=== PATIENT | male | born 1995 | race Caucasian/White ===

== ENCOUNTER 2016-11-05 17:36 | Inpatient (IN) | payer OTHER ==
--- NOTE | ~2016-11-05 | HP ---
Unit #: [id number] #: [id number] Patient: RALPH FRIAS [id number] [facility] [address] [place] [address] [id number] I MR#: [id number] NAME: RALPH FRIAS. ROOM: 14 Age: 21 Sex: M Admission Date: 11/05/2016 : 1995 Attending Physician: Joe Vogel M.D. Admitting Physician: Joe Vogel M.D. Primary Care Physician: Primary Care Physician No HISTORY AND PHYSICAL HISTORY OF PRESENT ILLNESS Ralph is a 21 year old admitted to [address] [place] [address] with psychotic behavior. He remains very psychotic and is uncooperative so his history is taken from his chart and exam is limited. PAST MEDICAL HISTORY Nothing significant. PAST SURGICAL HISTORY Nothing reported. ALLERGIES No known drug allergies. SOCIAL HISTORY He smokes. Denies alcohol and illicit drug use. FAMILY HISTORY Medically not known. REVIEW OF SYSTEMS He does not answer any questions appropriately. CURRENT MEDICATIONS 1. Abilify 10 mg b.i.d. 2. Milk of Magnesia p.r.n. 3. Maalox p.r.n. 4. Tylenol p.r.n. 5. Nicotine patch 21 mg daily PHYSICAL EXAMINATION GENERAL: Alert, well-nourished, in no apparent distress. VITAL SIGNS: Blood pressure 115/65, heart rate 80, respirations 16, temperature 98.6. WEIGHT: 177 pounds. HEIGHT: 5'8". SKIN: Unable to assess. HEENT: Unable to assess. NECK: Unable to assess. HEART: Rate and rhythm is regular. LUNGS: Unable to assess. ABDOMEN: Unable to assess. Unit #: [id number] #: [id number] Patient: RALPH FRIAS : Unable to assess. EXTREMITIES: Moves all extremities without focal deficit. Gait normal. NEUROLOGICAL: Unable to assess. IMPRESSION Psychiatric admission RECOMMENDATIONS PSYCHIATRIC: Per psychiatrist. MEDICAL: I see no contraindications to participating in facility's activities. MEDICAL PROGNOSIS Good. MEDICAL CONDITION Stable. Dictated by... Beverly Pitts P.A.-C. for Jose Luis Romero/em TD: 11/06/2016 20:51 JOB #: [id number] HISTORY AND PHYSICAL X Beverly Pitts HISTORY AND PHYSICAL
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
--- NOTE | ~2016-11-05 | PN ---
Unit #: [id number] #: [id number] Patient: ABI FRIAS [id number] [facility] [address] [place] [address] [id number] I MR#: [id number] NAME: ABI FRIAS. ROOM: P130 Age: 21 Sex: M Admission Date: 11/05/2016 : 1995 Attending Physician: Joe Vogel M.D. Admitting Physician: Joe Vogel M.D. Primary Care Physician: Primary Care Physician Edita TOVAR NOTES DATE OF SERVICE: 11/16/2016 SUBJECTIVE Mr. Frias is a 21-year-old white male who was seen today and chart was reviewed, and case was discussed with the staff. He has been anxious, restless, and agitated, and aggressive and has another episode at [facility] yesterday, requiring physical restraint and management, and intramuscular injection of Haldol and Benadryl to be given. Meanwhile, he has been taking the medications and tolerating them fairly well, but has been having difficulty following directions. MENTAL STATUS EXAMINATION Young white male who was casually dressed with fair personal hygiene, appears to be in no acute distress or discomfort. He was awake and alert on interaction with intact orientation. His mood was anxious with a congruent affect. He denies any suicidal or homicidal ideation. His insight and judgment remain slightly impaired. TREATMENT PLAN 1. We will continue him on his current medications and treatment protocol. We will monitor his response to medications and make further adjustments as needed. 2. We will continue to follow up. Dictated by... Jose Luis Sampson/ovi TD: 11/17/2016 00:15 JOB #: [id number] TAMARA PROGRESS NOTES X Joe Vogel MD PROGRESS NOTE
--- NOTE | ~2016-11-05 | PN ---
Unit #: [id number] #: [id number] Patient: ABI FRIAS [id number] [facility] [address] [place] [address] [id number] I MR#: [id number] NAME: ABI FRIAS. ROOM: P114 Age: 21 Sex: M Admission Date: 11/05/2016 : 1995 Attending Physician: Joe Vogel M.D. Admitting Physician: Joe Vogel M.D. Primary Care Physician: Primary Care Physician Edita TOVAR NOTES DATE 11/09/2016 DISCUSSION Mr. Frias is a 21-year-old white male with mood disorder and psychosis who was seen today and chart was reviewed and case was discussed with the staff. He has been anxious, restless, withdrawn and seclusive to himself and was seen to be unkempt, disheveled, disorganized, unable to be carry on meaningful conversation and appears to be exhibiting some acute psychosis. Meanwhile, he has been taking medications and tolerating them fairly well though has not been able to show a therapeutic response. MENTAL STATUS EXAMINATION Young white male who was casually dressed with marginal personal hygiene and appears to be in no acute distress or discomfort. He was awake and alert with impaired attention and concentration. His mood was anxious with congruent affect. His speech is slow and restricted in content. His thought processes were disorganized with some looseness of associations and paranoid ideations and delusional behavior. His insight and judgement remains significantly impaired. TREATMENT PLAN 1. We will continue on his current medications and treatment protocol. Will monitor his response to the medications and make further adjustments as needed. 2. We will continue to follow up. Dictated by... Jose Luis Sampson/miguel TD: 11/09/2016 16:59 JOB #: [id number] Unit #: [id number] #: [id number] Patient: ABI FRIAS PROGRESS NOTES X Joe Vogel MD PROGRESS NOTE
--- NOTE | ~2016-11-05 | PN ---
Unit #: [id number] #: [id number] Patient: ABI FRIAS [id number] [facility] [address] [place] [address] [id number] MR#: [id number] NAME: ABI FRIAS. ROOM: P130 Age: 21 Sex: M Admission Date: 11/05/2016 : 1995 Attending Physician: Joe Vogel M.D. Admitting Physician: Joe Vogel M.D. Primary Care Physician: Primary Care Physician Edita TOVAR NOTES DATE OF SERVICE 11/14/2016 DISCUSSION Mr. Frias is a 21-year-old white male with mood disorder and psychosis who was seen today. Chart was reviewed and case was discussed with the staff. He has been anxious, withdrawn, unkempt, disheveled, and disorganized. Meanwhile, he has been taking the medications and tolerating them fairly well with no reported side effects. MENTAL STATUS EXAMINATION Young white male who is casually dressed with marginal personal hygiene, appears to be in no acute distress or discomfort. The patient was awake and alert with impaired attention and concentration. His mood is anxious with congruent affect. Her speech is slow and restricted in content. His thought processes were disorganized with some looseness of associations. His insight and judgment remain significantly impaired. TREATMENT PLAN 1. We will continue him on his current medications and treatment protocol. We will monitor his response to the medications and make further adjustments as needed. 2. We will continue to follow up. Dictated by... Jose Luis Sampson/batshevag TD: 11/15/2016 09:26 JOB #: [id number] TAMARA PROGRESS NOTES X Joe Vogel MD PROGRESS NOTE
--- NOTE | ~2016-11-05 | PN ---
Unit #: [id number] #: [id number] Patient: ABI FRIAS [id number] [facility] [address] [place] [address] [id number] I MR#: [id number] NAME: ABI FRIAS. ROOM: P130 Age: 21 Sex: M Admission Date: 11/05/2016 : 1995 Attending Physician: Joe Vogel M.D. Admitting Physician: Joe Vogel M.D. Primary Care Physician: Primary Care Physician Edita MCDONALD PROGRESS NOTES DATE 11/11/2016 DISCUSSION Mr. Frias is a 21-year-old, white male who was seen today and chart was reviewed and case was discussed with the staff. He has been anxious, withdrawn and rather seclusive to himself. Meanwhile, he has been cooperative with the treatment recommendations. He has been taking the medication and tolerating them fairly well with no reported side effects. MENTAL STATUS EXAM Young white male who was casually dressed with fair personal hygiene, appears to be in no acute distress or discomfort. He was awake and alert on interaction with impaired attention and concentration. His mood was anxious with congruent affect. His speech was slow and restricted in content. His thought processes were disorganized with some looseness of associations and thought blocking and paranoid ideation. His insight and judgement remains significantly impaired. TREATMENT PLAN 1. We will continue him on his current medications and treatment protocol. We will monitor his response and make further adjustments as needed. 2. We will continue to follow up. Dictated by... Jose Luis Sampson/em TD: 11/13/2016 03:34 JOB #: [id number] Unit #: [id number] #: [id number] Patient: ABI FRIAS PEAMERYL PROGRESS NOTES X Joe Vogel MD PROGRESS NOTE
--- NOTE | ~2016-11-05 | A ---
[facility] Nutrition Therapy DATE: 11/16/16 Patient: ABI FRIAS Physician: MANUELF Address: [address] Room/Bed: [address], Zip: [place] [address] Admit Date: 11/05/16 Date of : [birth year] Height: Weight: [phone] NUTRITIONAL ASSESSMENT: REASON: LOS PATIENT ADMITTED FOR PSYCHOTIC BEHAVIORS PMH: NONE Anthropometrics: HT: 5'8", WT: 177#, BMI: 26.9, %IBW: 115 Labs: NO LABS AVAILABLE Meds: ABILIFY Assessment: CHART REVIEWED, EVENTS NOTED. PATIENT IS A 21 Y/O MALE ADMITTED FOR PSYCHOTIC BEHAVIORS. PATIENT IS CURRENTLY UNEMPLOYED, LIVES WITH PARENTS, SMOKES DAILY, AND DENIES SUBSTANCE ABUSE. PATIENT STATED A GOOD APPETITE. PATIENT DOES NOT ANSWER QUESTIONS APPROPRIATELY AND CONTINUES TO EXHIBIT PSYCHOTIC BEHAVIORS. PATIENT HAS BEEN NON-COMPLIANT WITH MEDICATIONS PRIOR TO ADMIT AND HAS BEEN DECOMPENSATING. PATIENT HAS A HX OF MULTIPLE INPATIENT PSYCH HOSPITALIZATIONS. NURSING REPORTS CONSISTENTLY GOOD PO INTAKES. PATIENT IS ON A REGULAR DIET, AND THERE ARE NO SKIN OR GI ISSUES NOTED ATT. Dx: NO NUTRITION DX Intervention: 1. REGULAR DIET WITH LARGE PORTION ENTREES, 2. MEDS PER MD, 3. PSYCH Monitoring, Evaluation and Goals: 1. ADEQUATE PO INTAKES >50% OF MEALS 2. PREVENT, CORRECT MICRO/MACRO NUTRIENT DEFICIENCIES MONITOR: WEIGHTS, LABS, PO/FLUID INTAKES Recommendations: 1. CONTINUE REGULAR DIET TOLERATED. RECOMMEND D/CING LARGE PORTION ENTREES D/T NO NUTRITIONAL NEED FOR INCREASED CALORIC INTAKES. PATIENT'S BMI IS ABOVE A HEALTHY RANGE OF 19-25. 2. ENCOURAGE ADEQUATE PO AND FLUID INTAKES RD TO F/U PER PROTOCOL AND PRN R/T PATIENT NOT AT NUTRITIONAL RISK ATT [facility] Therapy DATE: 11/16/16 Patient: ABI FRIAS Physician: ANDREA Address: [address] [place] [address] Room/Bed: [address], Zip: [place] [address] Admit Date: 11/05/16 Date of : [birth year] Height: Weight: [phone] Respectfully, JOYA RANDALL, RD, LD [facility] cc: client file
--- NOTE | ~2016-11-05 | PN ---
Unit #: [id number] #: [id number] Patient: ABI FRIAS [id number] [facility] [address] [place] [address] [id number] MR#: [id number] NAME: ABI FRIAS. ROOM: P114 Age: 21 Sex: M Admission Date: 11/05/2016 : 1995 Attending Physician: Joe Vogel M.D. Admitting Physician: Joe Vogel M.D. Primary Care Physician: Primary Care Physician Edita TOVAR NOTES DATE OF SERVICE 11/07/2016 DISCUSSION Mr. Frias is a 21-year-old white male with mood disorder and psychosis who was seen today. Chart was reviewed and case was discussed with the staff. He has been anxious, withdrawn, and rather seclusive to himself though has been cooperative with the treatment recommendation and has been taking the medications and tolerating them fairly well with no reported side effects. MENTAL STATUS EXAMINATION A young white male who is casually dressed with fair personal hygiene, appears to be in no acute distress or discomfort. The patient was awake and alert with impaired attention and concentration. His mood is anxious with congruent affect. Speech is slow and restricted in content. His thought process were disorganized with some looseness of associations. His insight and judgment remain significantly impaired. TREATMENT PLAN 1. We will continue him on his current medications and treatment protocol. We will monitor his response to the medications and make further adjustments as needed. 2. We will continue to follow up. Dictated by... Joe Vogel M.D. IAA/bzg TD: 11/08/2016 12:41 JOB #: [id number] SETH PROGRESS NOTES X Joe Vogel MD PROGRESS NOTE
--- NOTE | ~2016-11-05 | PN ---
Unit #: [id number] #: [id number] Patient: ABI FRIAS [id number] [facility] [address] [place] [address] [id number] MR#: [id number] NAME: ABI FRIAS. ROOM: P114 Age: 21 Sex: M Admission Date: 11/05/2016 : 1995 Attending Physician: Joe Vogel M.D. Admitting Physician: Joe Vogel M.D. Primary Care Physician: Primary Care Physician Edita TOVAR NOTES DATE 11/06/2016 DISCUSSION Mr. Frias is a 21-year-old male who was seen today and chart was reviewed and case was discussed with the staff. He has been anxious, withdrawn though has not shown any agitation, irritability and has been cooperative with treatment recommendations and has been taking medications and tolerating them fairly well with no reported side effects. However, he was seen to be acutely psychotic with bizarre behavior, unable to carry on much conversation and at the same time was showing poor insight into his situation and feels unable to elaborate the reasons behind hospitalization. MENTAL STATUS EXAMINATION Young white male who was casually dressed with marginal personal hygiene and appears to be in no acute distress or discomfort. He was awake and alert on interaction with intact orientation. His mood was anxious with congruent affect. His speech is slow and restricted in content. His thought processes were disorganized with some looseness of associations and paranoid ideations and delusional behavior. His insight and judgement remains significantly impaired. TREATMENT PLAN 1. We will consider him to be a candidate for long-acting injectable antipsychotic and acute psychosis and violent behavior and poor compliance with medication. Will recommend initiating Abilify [place]. 2. We will continue to follow up. Dictated by... Jose Luis Sampson/miguel TD: 11/07/2016 22:32 JOB #: [id number] Unit #: [id number] #: [id number] Patient: ABI FRIAS PEAMERYL PROGRESS NOTES X Joe Vogel MD X PROGRESS NOTE
--- NOTE | ~2016-11-05 | PN ---
Unit #: [id number] #: [id number] Patient: ABI FRIAS [id number] [facility] [address] [place] [address] [id number] MR#: [id number] NAME: ABI FRIAS. ROOM: P114 Age: 21 Sex: M Admission Date: 11/05/2016 : 1995 Attending Physician: Joe Vogel M.D. Admitting Physician: Joe Vogel M.D. Primary Care Physician: Primary Care Physician Edita MCDONALD PROGRESS NOTES DATE OF SERVICE: 11/08/2016 SUBJECTIVE Mr. Frias is a 21-year-old white male, who was seen today and chart was reviewed, and case was discussed with the staff. He has been anxious, withdrawn, and seclusive to himself and has been exhibiting bizarre behavior, persistent psychosis, paranoia and delusional behavior. MENTAL STATUS EXAMINATION Young white male, who was casually dressed with fair personal hygiene, appears to be in no acute distress or discomfort. He was awake and alert with impaired attention and concentration. His mood was anxious with a congruent affect. His speech was slow and restricted in content. His thought processes were disorganized with some looseness of associations. His insight and judgment remain significantly impaired. TREATMENT PLAN 1. We will continue on his current medications and treatment protocol. We will monitor his response to medications and make further adjustments as needed. 2. We will continue to follow up. Dictated by... Jose Luis Sampson/ovi TD: 11/08/2016 23:07 JOB #: [id number] TAMARA PROGRESS NOTES X Joe Vogel MD PROGRESS NOTE
--- NOTE | ~2016-11-05 | PN ---
Unit #: [id number] #: [id number] Patient: ABI FRIAS [id number] [facility] [address] [place] [address] [id number] I MR#: [id number] NAME: ABI FRIAS. ROOM: P130 Age: 21 Sex: M Admission Date: 11/05/2016 : 1995 Attending Physician: Joe Vogel M.D. Admitting Physician: Joe Vogel M.D. Primary Care Physician: Primary Care Physician Edita TOVAR NOTES DATE November 10, 2016 DISCUSSION Mr. Frias is a 21-year-old white male, who was seen today and chart was reviewed and the case was discussed with the staff. He has been anxious, withdrawn, and rather seclusive to himself. Meanwhile, he has been cooperative with the treatment recommendations and he has been tolerating them fairly well but has been very seclusive to himself with bizarre behavior. Meanwhile, he has been taking the medications and tolerating them fairly well with no reported side effects. MENTAL STATUS EXAMINATION Young white male, who was casually dressed with fair personal hygiene and appears to be in no acute distress or discomfort. He was awake and alert on interaction with intact orientation. His mood is anxious with a congruent affect. His speech is slow and goal-directed. He denies any suicidal or homicidal ideations, and also denies any auditory or visual hallucinations. His insight and judgment remain slightly impaired. TREATMENT PLAN 1. We will continue him on his current medications and treatment protocol, and will monitor his response, and make further adjustments as needed. 2. We will continue to followup. Dictated by... Jose Luis Sampson/mony TD: 11/12/2016 12:28 JOB #: [id number] Unit #: [id number] #: [id number] Patient: ABI FRIAS TAMARA TOVAR NOTES X Joe Vogel MD PROGRESS NOTE
--- NOTE | ~2016-11-05 | PN ---
Unit #: [id number] #: [id number] Patient: ABI FRIAS [id number] [facility] [address] [place] [address] [id number] MR#: [id number] NAME: ABI FRIAS. ROOM: P130 Age: 21 Sex: M Admission Date: 11/05/2016 : 1995 Attending Physician: Joe Vogel M.D. Admitting Physician: Joe Vogel M.D. Primary Care Physician: Primary Care Physician Edtia TOVAR NOTES DATE OF SERVICE: 11/12/2016 SUBJECTIVE Mr. Frias is a 21-year-old white male, who was seen today and chart was reviewed, and case was discussed with the staff, who reports the patient continues to be exhibiting acute psychosis and has been responding to internal stimuli, pacing the hallways and talking to things and objects that are not there. His personal hygiene is compromised as well as he has not been able to take care of himself and do activities of daily living. He has received Abilify Maintena injection, but has not been able to show a therapeutic response yet. MENTAL STATUS EXAMINATION Young white male, who was casually dressed with marginal personal hygiene, appears to be in no acute distress or discomfort. He was awake and alert with impaired attention and concentration. His mood was anxious with a congruent affect. His speech was slow and restricted in content. His thought processes were disorganized with some looseness of associations. His insight and judgment remain significantly impaired. TREATMENT PLAN 1. We will continue him on his current medications and treatment protocol. We will consider further increasing the dosage of the oral Abilify until Abilify Maintena start showing therapeutic efficacy. 2. We will continue to follow up. Dictated by... Jose Luis Sampson/modl TD: 11/13/2016 04:46 JOB #: [id number] Unit #: [id number] #: [id number] Patient: ABI FRIAS PEAMERYL PROGRESS NOTES X Joe Vogel MD PROGRESS NOTE
--- NOTE | ~2016-11-05 | DS ---
Unit #: [id number] #: [id number] Patient: [facility] FRIAS [id number] [facility] [place] [address] [id number] I MR#: [id number] NAME: ABI FRIAS. ROOM: 30 Age: 21 Sex: M Admission Date: 11/05/2016 : 1995 Discharge Date: 11/17/2016 Attending Physician: Joe Vogel M.D. Primary Care Physician: Primary Care Physician No DISCHARGE SUMMARY IDENTIFYING DATA Mr. Frias is a 21-year-old single white male, who is a resident of [place], [place], and was brought to the hospital by his mother. DISCHARGE DIAGNOSES Psychiatric: Chronic paranoid schizophrenia. Medical: None. Stressors: Moderate psychosocial stressors. HISTORY OF PRESENT ILLNESS Please see initial psychiatric evaluation for details. PAST PSYCHIATRIC HISTORY Please see initial psychiatric evaluation for details. PAST MEDICAL HISTORY Please see initial psychiatric evaluation for details. HOSPITAL COURSE The patient was admitted to the adult psychiatric unit at [facility]jeet [facility] and was oriented to the hospital environment. Routine p.r.n. medications were initiated and he was started back on his home medications. However, he was seen to be exhibiting acute psychosis and along with that, he was having episodes of violent outbursts with physical aggression requiring code being called and p.r.n. medications to be given and due to his history of poor compliance with medications and outpatient followup, it was noted that he will be a candidate for long-acting injectable antipsychotic and as such, Abilify was initiated and ruling out hypopituitarism, for mood disorder, he was started on Abilify Maintena 400 mg intramuscular once a month which was able to receive for extra dose while on the unit without any tolerability issues and oral Abilify was maintained as he has not had a time to start experiencing therapeutic benefit from Abilify Maintena; however, he was able to settle down and was wanting to go home and was willing to continue treatment on an outpatient basis and as such, it was decided that he will be discharged home and will continue treatment on an outpatient basis. DISCHARGE MEDICATIONS Abilify 10 mg b.i.d. for mood disorder for the next 14 days only and Abilify Maintena 400 mg intramuscular once a month over the next dose being due on 12/15/2016. DISCHARGE CONDITION Stable. Unit #: [id number] #: [id number] Patient: ABI FRIAS MARY Pritchard. Dictated by... Jose Luis Sampson/ovi TD: 11/18/2016 00:11 JOB #: [id number] DISCHARGE SUMMARY X Joe Vogel MD X DISCHARGE SUMMARY
--- NOTE | ~2016-11-05 | PN ---
Unit #: [id number] #: [id number] Patient: ABI FRIAS [id number] [facility] [address] [place] [address] [id number] I MR#: [id number] NAME: ABI FRIAS. ROOM: P130 Age: 21 Sex: M Admission Date: 11/05/2016 : 1995 Attending Physician: Joe Vogel M.D. Admitting Physician: Joe Vogel M.D. Primary Care Physician: Primary Care Physician Edita TOVAR NOTES DATE November 13, 2016 DISCUSSION Mr. Frias is a 21-year-old white male, with a chronic mental illness, who was seen today and chart was reviewed and the case was discussed with the staff. Staff reports that the patient appears to be decompensating with continued agitation and aggression, and had an outburst within his quadrant and violent yesterday and was given an injection of Haldol and he still has been pacing the hallways this morning and has been smiling and laughing inappropriately and responding to internal stimuli and has been unable to carry on any meaningful conversation and as such there remains a poor prognosis. We will continue to monitor his response to medications and treatment interventions. We will make further adjustments as needed. Dictated by... Jose Luis Sampson/mony TD: 11/14/2016 11:53 JOB #: [id number] TAMARA PROGRESS NOTES X Joe Vogel MD PROGRESS NOTE
--- NOTE | ~2016-11-05 | PN ---
Unit #: [id number] #: [id number] Patient: ABI FRIAS [id number] [facility] [address] [place] [address] [id number] I MR#: [id number] NAME: ABI FRIAS. ROOM: P130 Age: 21 Sex: M Admission Date: 11/05/2016 : 1995 Attending Physician: Joe Vogel M.D. Admitting Physician: Joe Vogel M.D. Primary Care Physician: Primary Care Physician Edita MCDONALD PROGRESS NOTES DATE November 15, 2016 DISCUSSION Mr. Frias is a 21-year-old white male, with mood disorder, and psychosis, who was seen today and chart was reviewed and the case was discussed with the staff. He has been anxious, withdrawn, and apparently had another violent outburst today, and was explosive and had to be pinned down on the floor and a code had to be called, and multiple staff members had to hold him and injection of Haldol and Benadryl was given to cut down on his agitation, followed by which he was taken to the seclusion room. MENTAL STATUS EXAMINATION Young white male, who was casually dressed with marginal personal hygiene and appears to be in no acute distress or discomfort. He was awake and alert on interaction with intact orientation. His mood is anxious with a congruent affect. His speech is slow and goal-directed. He denies any suicidal or homicidal ideations, and also denies any auditory or visual hallucinations. His insight and judgment remain slightly impaired. TREATMENT PLAN 1. We will continue him on his current medications and treatment protocol, and will monitor his response to the medications, and make further adjustments as needed. 2. We will continue to followup. Dictated by... Jose Luis Sampson/mony TD: 11/16/2016 05:19 JOB #: [id number] Unit #: [id number] #: [id number] Patient: ABI FRIAS PROGRESS NOTES X Joe Vogel MD PROGRESS NOTE
== END 2016-11-17 13:03 | disposition home or self-care (01) | DRG 885 ==
LOC: P1S 17:36
DX: F20.0 Paranoid schizophrenia (principal); Z91.14 Patient's other noncompliance with medication regimen; Z56.0 Unemployment, unspecified
CPT/HCPCS: J1200; J1630